=== PATIENT | male | born 1955 ===

== ENCOUNTER 2021-06-23 12:31 | Inpatient (IN) | payer BC, MEDICARE ==
[~2021-06-23] VITALS: Ht 170 cm; Wt 89.4 kg
[2021-06-23 13:12] LABS: BASOPHILS % (AUTO) 0 % (0-10); EOSINOPHILS % (AUTO) 0 % (0-10); HEMATOCRIT 30 % (40-54); HEMOGLOBIN 10.3 g/dL (13.3-17.7); LYMPHOCYTES # (AUTO) 2.3 10^3/uL (1.0-4.0); LYMPHOCYTES % (AUTO) 15 % (12-44); MEAN CORPUSCULAR HEMOGLOBIN 32 pg (25-34); MEAN CORPUSCULAR HGB CONC 34 g/dL (32-36); MEAN CORPUSCULAR VOLUME 94 fL (80-99); MEAN PLATELET VOLUME 10.2 fL (9.0-12.2); MONOCYTES # (AUTO) 0.6 10^3/uL (0.0-1.0); MONOCYTES % (AUTO) 4 % (0-12); NEUTROPHILS % (AUTO) 81 % (42-75); PLATELET COUNT 378 10^3/uL (130-400)
[2021-06-23] MEDS ORDERED: PANTOPRAZOLE 40 MG (PROTONIX) VIAL IV ONE (13:15)
[2021-06-23] MEDS ORDERED: ONDANSETRON 4 MG/2 ML (SDV) Z0FRAN IVP ONE (13:15)
[2021-06-23 13:18] LABS: INR 1.1 (0.8-1.4)
--- NOTE | 2021-06-23 13:28 | ED GI ---
General Chief Complaint: Abdominal/GI Problems Stated Complaint: ABD PAIN/VOMITING BLOOD Nursing Triage Note: ARRIVED VIA AMB WITH COMPLAINTS OF NEAR SYNCOPE LAST NIGHT, VOMITING BLOOD TODAY ALONG WITH BLACK STOOLS AND FEELING DIZZY. Source of Information: Patient Exam Limitations: No Limitations (RADHA VIEIRA STUDENT) History of Present Illness Date Seen by Provider: Jun 23, 2021 Time Seen by Provider: 13:15 Initial Comments This is a 65 YO male with history of HTN and pre-DM presents to the ED with hematemesis and black stools. Pt states he had the black stools as well as nausea and vomiting starting last night. Today, he noticed blood and black clots in the vomit, so he became concerned and came to the ER. Also had some dizziness with standing, but no other symptoms. Denies having had episodes like this before and has no history of GERD, gastritis, or ulcers. Never had an EGD, no abdominal surgeries. No NSAID use, but drinks 3 beers every night after work. Timing/Duration: 1 Day Associated Symptoms: No Back Pain, No Chest Pain, No Fever/Chills; Nausea/Vomiting; No Shortness of Air (RADHA VIEIRA STUDENT) Allergies and Home Medications Allergies Coded Allergies: No Known Drug Allergies (Unverified , 06/23/21) Patient Home Medication List Home Medication List Reviewed: Yes (KEN ESPINOZA MD) Atorvastatin Calcium (Atorvastatin Calcium) 20 Mg Tablet, 20 MG PO HS, (Reported) Entered as Reported by: ANNE BELL on 06/24/21947 Last Action: Reviewed Glipizide/Metformin HCl (Glipizide-Metformin 5-500 mg) 1 Each Tablet, 1 EA PO DAILY, (Reported) Entered as Reported by: ANNE BELL on 06/24/21947 Last Action: Reviewed Hydrochlorothiazide (Hydrochlorothiazide) 12.5 Mg Tablet, 12.5 MG PO DAILY, (Reported) Entered as Reported by: ANNE BELL on 06/24/21947 Last Action: Reviewed Metoprolol Succinate (Metoprolol Succinate) 100 Mg Tab.er.24h, 100 MG PO BID, (Reported) Entered as Reported by: ANNE BELL on 06/24/21947 Last Action: Reviewed Review of Systems Review of Systems Constitutional: No chills, No fever EENTM: No Blurred Vision, No Double Vision Respiratory: Denies Cough, Denies Orthopnea Cardiovascular: See HPI; Denies Chest Pain, Denies Edema Gastrointestinal: See HPI Musculoskeletal: No back pain, No neck pain Skin: no symptoms reported Psychiatric/Neurological: Denies Headache, Denies Numbness Endocrine: No Symptoms Reported Hematologic/Lymphatic: No Symptoms Reported (RADHA VIEIRA MED STUDENT) All Other Systems Reviewed Negative Unless Noted: Yes (Negative excepted noted.) (RADHA VIEIRA STUDENT) Past Wfhbfef-Czwlms-Wxqiix Hx Patient Social History Tobacco Use?: Yes Tobacco type used: Cigarettes Smoking Status: Current Everyday Smoker Substance use?: No Alcohol Use?: Yes Alcohol type: Beer Alcohol Frequency: Daily (RADHA VIEIRA STUDENT) Immunizations Up To Date Second COVID19 Vaccination Jorge: 01/27 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 oz. 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) Extremities: normal range of motion, normal inspection Back: no CVA tenderness, no vertebral tenderness Neurologic/Psychiatric: no motor/sensory deficits, alert, oriented x 3, other (anxious) Skin: normal color, warm/dry (RADHA VIEIRA MED STUDENT) Progress/Results/Core Measures Results/Orders Lab Results Laboratory Tests Test 06/23/21 12:55 Range/Units White Blood Count 16.0 H 4.3-11.0 10^3/uL Red Blood Count 3.23 L 4.30-5.52 10^6/uL Hemoglobin 10.3 L 13.3-17.7 g/dL Hematocrit 30 L 40-54 % Mean Corpuscular Volume 94 80-99 fL Mean Corpuscular Hemoglobin 32 25-34 pg Mean Corpuscular Hemoglobin Concent 34 32-36 g/dL Red Cell Distribution Width 13.4 10.0-14.5 % Platelet Count 378 130-400 10^3/uL Mean Platelet Volume 10.2 9.0-12.2 fL Immature Granulocyte % (Auto) 0 % Neutrophils (%) (Auto) 81 H 42-75 % Lymphocytes (%) (Auto) 15 12-44 % Monocytes (%) (Auto) 4 0-12 % Eosinophils (%) (Auto) 0 0-10 % Basophils (%) (Auto) 0 0-10 % Neutrophils # (Auto) 13.0 H 1.8-7.8 10^3/uL Lymphocytes # (Auto) 2.3 1.0-4.0 10^3/uL Monocytes # (Auto) 0.6 0.0-1.0 10^3/uL Eosinophils # (Auto) 0.0 0.0-0.3 10^3/uL Basophils # (Auto) 0.0 0.0-0.1 10^3/uL Immature Granulocyte # (Auto) 0.1 0.0-0.1 10^3/uL Neutrophils % (Manual) 79 % Lymphocytes % (Manual) 14 % Monocytes % (Manual) 6 % Eosinophils % (Manual) 0 % Basophils % (Manual) 0 % Band Neutrophils 1 % Blood Morphology Comment NORMAL Prothrombin Time 15.0 H 12.2-14.7 SEC INR Comment 1.1 0.8-1.4 Activated Partial Thromboplast Time 28 24-35 SEC Sodium Level 141 135-145 MMOL/L Potassium Level 4.1 3.6-5.0 MMOL/L Chloride Level 107 98-107 MMOL/L Carbon Dioxide Level 23 21-32 MMOL/L Anion Gap 11 5-14 MMOL/L Blood Urea Nitrogen 66 H 7-18 MG/DL Creatinine 1.15 0.60-1.30 MG/DL Estimat Glomerular Filtration Rate 64 BUN/Creatinine Ratio 57 Glucose Level 199 H 70-105 MG/DL Calcium Level 8.6 8.5-10.1 MG/DL Corrected Calcium 8.8 8.5-10.1 MG/DL Total Bilirubin 0.4 0.1-1.0 MG/DL Aspartate Amino Transf (AST/SGOT) 9 5-34 U/L Alanine Aminotransferase (ALT/SGPT) 14 0-55 U/L Alkaline Phosphatase 49 40-136 U/L Total Protein 5.9 L 6.4-8.2 GM/DL Albumin 3.7 3.2-4.5 GM/DL (KEN ESPINOZA MD) My Orders Orders - KEN ESPINOZA MD Ed Iv/Invasive Line Start (06/23/21 13:04) Cbc With Automated Diff (06/23/21 13:04) Comprehensive Metabolic Panel (06/23/21 13:04) Protime With Inr (06/23/21 13:04) Partial Thromboplastin Time (06/23/21 13:04) Ondansetron Injection (Zofran Injectio (06/23/21 13:15) Pantoprazole Injection (Protonix Injecti (06/23/21 13:15) Manual Differential (06/23/21 12:55) Orthostatic Vital Signs (Adult (06/23/21 13:36) Ed Admission (Communication) (06/23/21 14:49) (KEN ESPINOZA MD) Medications Given in ED (KEN ESPINOZA MD) Vital Signs/I&O 06/23/21 06/23/21 12:45 13:43 Temp 36.1 Pulse 84 75 76 82 Resp 16 B/P (MAP) 149/91 (110) 122/62 (82) 98/65 (76) 97/56 (70) Pulse Ox 96 O2 Delivery Room Air (KEN ESPINOZA MD) Blood Pressure Mean: 110 Progress Progress Note : Time: 14:08 Progress Note 65-year-old male with a history of hypertension and diabetes presents to the emergency room with black tarry stools for 24 hours and vomiting what sounds like coffee grounds this morning. Patient continues to have a little nausea and abdominal discomfort. No history of same in the past. He is not on anticoagulants. He complains of feeling a little dizzy with standing. Physical examination is notable for dark black stool in the rectal vault, Hemoccult positive. No masses palpated on rectal exam however it was difficult to get to the prostate. Abdominal exam is soft, nonfocal, positive bowel sounds no peritoneal signs. He is not significantly pale, not diaphoretic Neurologically normal Labs have been reviewed, the patient does have a leukocytosis of 16,000, mildly anemic with a hemoglobin of 10. Platelets are normal coags are normal. Case is discussed with Dr. Maddox who is on-call for general surgery and recommends P rotonix twice daily and clear liquids for now. I discussed the case with Dr. Taylor who accepts the patient for admission to cardiac stepdown. Findings and plan of care have been communicated to the patient. He is agreeable. All questions are sought and answered. (KEN ESPINOZA MD) Departure Communication (Admissions) Time/Spoke to Admitting Phy: 14:[address] Taylor; will put que'd orders in for admission Time/Spoke to Consulting Phy: 14:[address] Maddox; recc Protonix 40mg BID and clear liquids; he will see (KEN ESPINOZA MD) Impression Primary Impression: GI bleed Qualified Codes: K92.2 - Gastrointestinal hemorrhage, unspecified Disposition: ADMITTED INPATIENT Condition: Stable Admissions Decision to Admit Reason: Admit from ER (General) Decision to Admit/Date: Jun 23, 2021 Time/Decision to Admit Time: 14:07 (KEN SEPINOZA MD) Departure-Patient Inst. Referrals: NO,LOCAL PHYSICIAN (PCP/Family) Primary Care Physician Verification and Attestation of Medical Student E/M Service A medical student performed and documented this service in my presence. I reviewed and verified all information documented by the medical student and made modifications to such information, when appropriate. I personally performed the physical exam and medical decision making. Ken Espinoza, Jun 23, 2021,14:08 (KEN ESPINOZA MD) RADHA VIEIRA MED STUDENT Jun 23, 2021 13:27 KEN ESPINOZA MD Jun 23, 2021 14:08
[2021-06-23 13:30] LABS: ALBUMIN 3.7 GM/DL (3.2-4.5); BILIRUBIN,TOTAL 0.4 MG/DL (0.1-1.0); CALCIUM 8.6 MG/DL (8.5-10.1); CREATININE SERUM 1.15 MG/DL (0.60-1.30); POTASSIUM 4.1 MMOL/L (3.6-5.0); TOTAL PROTEIN 5.9 GM/DL (6.4-8.2)
[2021-06-23 13:33] LABS: BAND NEUTROPHILS 1 %; BASOPHILS % (MANUAL) 0 %; EOSINOPHILS % (MANUAL) 0 %; LYMPHOCYTES % (MANUAL) 14 %; MONOCYTES % (MANUAL) 6 %; NEUTROPHILS % (MANUAL) 79 %; RBC MORPH NORMAL
[2021-06-23 13:43] VITALS: BP_SYST 122; BP_SYST 97; BP_SYST 98; BP_DIAS 56; BP_DIAS 62; BP_DIAS 65
--- NOTE | 2021-06-23 15:07 | History & Physical-Hospitalist ---
NONA LUBIN MED STUDENT 06/23/21 1507: History of Present Illness HPI/Chief Complaint CC- GI Bleed Mr. Schafer is a 65 YO male with a history of HTN, Diabetes, and High cholesterol that presented to the ER today due to black stool and emesis. He states that yesterday he was coming home from work and felt like he was having an episode of high blood pressure, he started to have some nausea in his stomach. Then around 1 or 2 in the morning he went to the bathroom and noticed that his stool was black. He also vomited from his nausea and noted it to be black with blood clots in it as well. He states that he was also having some lightheadedness throughout the day yesterday when he would stand up to walk. The lightheadedness is better when he sits and gets worse with walking. He does complain of SOB, Black stools and emesis. He denies ABD pain, fevers, chills, ASHRAF, CP, dysuria, and leg/foot pain. He has never had bleeding like this before. He has a medical history of HTN, diabetes, and high cholesterol. He has never had surgery. States he has never had colonoscopy or EGD. States he is a 1/2 PPD smoker, Drinks about 3-4 beers a day after work. No elicit drugs. States his only family history is a mother with diabetes. He is not on a blood thinner. He is being admitted to [facility]. Surgery reccomends Protonix and clear liquids, will probably scope patient sometime tomorrow or the next day. Source: patient Exam Limitations: no limitations Date Seen 06/23/21 Time Seen by a Provider: 15:00 Attending Physician Tawana Tracey DO PCP No,Local Physician Referring Physician Date of Admission 06/23/2021 Home Medications & Allergies Home Medications Reviewed patient Home Medication Reconciliation performed by pharmacy medication reconciliations vocational rehabilitation technician and/or nursing. Patients Allergies have been reviewed. Allergies Allergies Coded Allergies No Known Drug Allergies (Rkofufispz73/15/21) Past Rhzjkyy-Vzyomw-Gjgfop Hx Patient Social History Tobacco Use?: Yes Tobacco type used: Cigarettes Smoking Status: Current Everyday Smoker Substance use?: No Alcohol Use?: Yes Alcohol type: Beer Alcohol Frequency: Daily Immunizations Up To Date Second COVID19 Vaccination Jorge: 01/27 Current Status Advance Directives: No Primary Language: Tuvaluan Preferred Spoken Language: Tuvaluan Review of Systems Constitutional: No chills, No diaphoresis; dizziness; No fever, No weakness EENTM: No blurred vision, No eye pain, No vision loss, No mouth pain, No epistaxis Respiratory: No cough; dyspnea on exertion; No hemoptysis, No phlegm; short of breath Cardiovascular: No chest pain, No edema, No Hx of Intervention, No palpitations, No syncope Gastrointestinal: No abdominal pain, No constipation, No diarrhea, No dysphagia; hematemesis ([place]), melena, nausea, vomiting Genitourinary: No discharge, No dysuria, No frequency, No hematuria, No hesita ncy, No incontinence Musculoskeletal: No joint pain Skin: No lesions, No rash Psychiatric/Neurological: Denies Headache Physical Exam Physical Exam Vital Signs Vital Signs - First Documented 06/23/21 12:45 Temp 36.1 Pulse 84 Resp 16 B/P (MAP) 149/91 (110) Pulse Ox 96 O2 Delivery Room Air Capillary Refill : Less Than 3 Seconds Height, Weight, BMI Height: '" Weight: lbs. oz. kg; 29.00 BMI Method: General Appearance: No Apparent Distress, WD/WN Eyes: Bilateral Eye Normal Inspection, Bilateral Eye PERRL, Bilateral Eye EOMI HEENT: PERRL/EOMI, Pharynx Normal, Moist Mucous Membranes Neck: Supple Respiratory: Chest Non Tender, Lungs Clear, Normal Breath Sounds, No Accessory Muscle Use, No Respiratory Distress Cardiovascular: Regular Rate, Rhythm, No Edema, No Murmur, Normal Peripheral Pulses Gastrointestinal: Normal Bowel Sounds, No Organomegaly, No Pulsatile Mass, Non Tender, Soft Rectal: Other (Per ED He had dark stool in the rectal vault, no notable masses but was difficult to palpate prostate. Hemeoccult +) Extremity: Normal Capillary Refill, Normal Inspection, Non Tender, No Calf Tenderness, No Pedal Edema Neurologic/Psychiatric: Alert, Oriented x3, Normal Mood/Affect Skin: Normal Color, Warm/Dry Results Results/Procedures Labs Laboratory Tests 06/23/21 12:55 Patient resulted labs reviewed. Assessment/Plan Admission Diagnosis GI Bleed Admission Status: Inpatient Order (span 2 midnights) Reason for Inpatient Admission: GI Bleed, Scope Assessment and Plan GI Bleed Anemia -HBG 10.3, continue to monitor -Daily Labs -Protonix, clear liquids -Will likely need scope Leukocytosis -16.0 today -Check daily HTN Hypercholesteremia -Normal Meds Diabetes -Monitor Blood sugar -Home meds Supervisory-Addendum Brief Verification & Attestation Participated in pt care: history, physical Personally performed: exam Care discussed with: Medical Student Procedures: n/a n/a TAWANA TRACEY 06/24/21 0543: History of Present Illness HPI/Chief Complaint CC: Dark stools HPI: This is a male who has no PMH who presented to the ER with dark stools and weakness, he was noted to be orthostatic with hypotension when he stood up. Pt had been passing dark stools and vomiting blood so due to the fact of his significant orthostasis, Hgb of 10.3, and suspected upper go bleed, he will be placed in the ICU, Hgb and Hematocrit will be checked every six hours, Protonix 40 Mg IV BID along with aggressive IV fluids and Dr. Maddox has been consulted. Source: patient Exam Limitations: no limitations Past Njkusod-Fwkjbc-Lvsflx Hx Patient Social History Marrital Status: single Employed/Student: employed Smoking Status: Current Everyday Smoker Alcohol Use?: Yes Alcohol Frequency: Daily Review of Systems Constitutional: see HPI Gastrointestinal: melena, nausea, vomiting Physical Exam Physical Exam General Appearance: No Apparent Distress, WD/WN, Chronically ill Eyes: Right Eye Normal Inspection, Right Eye PERRL HEENT: PERRL/EOMI, Normal ENT Inspection, Pharynx Normal, Moist Mucous Membranes Neck: Full Range of Motion, Normal Inspection, Non Tender Respiratory: Chest Non Tender, Lungs Clear, Normal Breath Sounds, No Accessory Muscle Use, No Respiratory Distress Cardiovascular: Regular Rate, Rhythm, No Edema, No Gallop, No JVD, No Murmur, Normal Peripheral Pulses Gastrointestinal: Normal Bowel Sounds, No Organomegaly, No Pulsatile Mass, Non Tender, Soft Back: Normal Inspection, No CVA Tenderness, No Vertebral Tenderness Extremity: Normal Capillary Refill, Normal Inspection, Normal Range of Motion, Non Tender, No Calf Tenderness, No Pedal Edema Neurologic/Psychiatric: Alert, Oriented x3, No Motor/Sensory Deficits, Normal Mood/Affect Skin: Normal Color, Warm/Dry Lymphatic: No Adenopathy Assessment/Plan Admission Diagnosis Assessment: GI bleed Orthostasis Anemia Alcohol user Smoker Plan: Stepdown Dr. MADDOX Admission Status: Observation Diagnosis/Problems Diagnosis/Problems (1) GI bleed Status: Acute Qualifiers: GI bleed type/associated pathology: unspecified gastrointestinal hemorrhage type Qualified Codes: K92.2 - Gastrointestinal hemorrhage, unspecified Supervisory-Addendum Brief Verification & Attestation Participated in pt care: history, MDM, physical Personally performed: exam, history, MDM, supervision of care Care discussed with: Medical Student Procedures: n/a Results interpretation: Verified all documentation Verification and Attestation of Medical Student E/M Service A medical student performed and documented this service in my presence. I reviewed and verified all information documented by the medical student and made modifications to such information, when appropriate. I personally performed the physical exam and medical decision making. Tawana Tracey, Jun 24, 2021,05:43 NONA LUBIN MED STUDENT Jun 23, 2021 15:07 TAWANA TRACEY DO Jun 24, 2021 05:43
--- NOTE | 2021-06-23 15:10 | CONSULTATION REPORT ---
DATE OF SERVICE: HISTORY OF PRESENT ILLNESS: The patient is a 65-year-old male who presented to the Emergency Department with dark tarry stools as well as coffee-ground emesis. He has a history of hypertension as well as diabetes and does smoke daily as well as drink approximately 3 beers daily. Besides having noticing the symptoms, he also reported that he did have one episode where he stood up quickly and he felt lightheaded. He does not have any known history of peptic ulcer disease nor gastroesophageal reflux disease. He does not report taking nonsteroidal anti-inflammatory on a chronic basis. His vital signs upon arrival are stable and his hemoglobin is stable at 10.3. PAST MEDICAL HISTORY: Hypertension, diabetes. PAST SURGICAL HISTORY: None known. ALLERGIES: No known drug allergies. MEDICATIONS: Antihypertensive daily. SOCIAL HISTORY: Positive smoke 45-pack years, three drinks daily. REVIEW OF SYSTEMS: Well-nourished male currently in no acute distress. He is not experiencing any shortness of breath or difficulty breathing. No chest pain, palpitations, diaphoresis. Did have episode of nausea as well as what appeared to be coffee ground material. He also has had several bowel movements, which had been dark tarry in consistency and color. No fever, chills, no recent inadvertent weight loss. All other review of systems negative. PHYSICAL EXAMINATION: CHEST: A few scattered wheezes bilaterally. HEART: Regular, no murmurs. EXTREMITIES: No lower extremity edema, negative Homans sign. HEENT: No scleral icterus. NECK: No cervical lymphadenopathy. ABDOMEN: Soft, nondistended. There is mild discomfort in the epigastric region upon deep palpation. No peritoneal signs. No hernias. SKIN: Warm, dry. LABORATORY DATA: WBC 16.0, hemoglobin 10.3, hematocrit 30, platelets 378. BUN 66, creatinine 1.15. Liver function enzymes are normal. ASSESSMENT AND PLAN: A 65-year-old male with likely upper gastrointestinal bleed secondary to smoking and alcohol use and unknown peptic ulcer disease. We will admit him continue with resuscitation and monitoring of his hemoglobin and hematocrit as well as placed him on IV PPI therapy on a b.i.d. basis. On this admission, we will also proceed with an EGD, which we will schedule. Job ID: [id number] DocumentID: [id number] Dictated Date: 06/23/2021 14:56:24 Assistant County Attorney Date: 06/23/2021 15:09:34 Dictated By: IAN ALFARO MD
[2021-06-23] MEDS ORDERED: diphenhydrAMINE 25 MG TAB (BENADRYL) PO PRN (17:15)
[2021-06-23] MEDS ORDERED: CALCIUM CARBONATE 500 MG (TUMS) TAB.CHEW PO PRN (17:15)
[2021-06-23] MEDS ORDERED: HYDROcodone/APAP 5 MG/325 MG (LORTAB) TAB PO PRN (17:15)
[2021-06-23] MEDS ORDERED: morphine INJ 10 MG/ML 1ML (SYR OR VIAL) IVP PRN (17:15)
[2021-06-23] MEDS ORDERED: MELATONIN 3 MG TABLET PO PRN (17:15)
[2021-06-23] MEDS ORDERED: DOCUSATE SODIUM 100 MG (COLACE) CAP PO PRN (17:15)
[2021-06-23] MEDS ORDERED: LOPERAMIDE 2 MG (IMODIUM) TABLET PO PRN (17:15)
[2021-06-23] MEDS ORDERED: ONDANSETRON 4 MG/2 ML (SDV) Z0FRAN IVP PRN (17:15)
[2021-06-23] MEDS ORDERED: ALPRAZolam 0.25 MG (XANAX) TAB PO PRN (17:15)
[2021-06-23] MEDS ORDERED: ACETAMINOPHEN 325 MG TABLET PO PRN (17:45)
[2021-06-23] MEDS: NS IV 1000 ML 1,000 ML IV SCH (18:30)
[2021-06-23 19:36] VITALS: BP 149/91
[2021-06-23] MEDS ORDERED: RT-ALBUTEROL SULF 2.5 MG/3 ML PRE-MIX VIAL INH PRN (19:45)
[2021-06-23] MEDS: SUCRALFATE 1 GM (CARAFATE) TAB PO SCH (20:17)
[2021-06-23] MEDS: PANTOPRAZOLE 40 MG (PROTONIX) VIAL IV SCH (20:17)
[2021-06-23] MEDS: polyethylene glycoL POWDER 17 GM (MIRALAX) PACK PO SCH (20:17)
[2021-06-23] MEDS: SENNA W/DOCUSATE (SENOKOT S) TABLET PO SCH (20:17)
[2021-06-23 20:24] LABS: HEMOGLOBIN 8.3 g/dL (13.3-17.7)
[2021-06-24] MEDS: NS IV 1000 ML 1,000 ML IV SCH (02:54)
[2021-06-24 04:30] LABS: BASOPHILS % (AUTO) 0 % (0-10); EOSINOPHILS # (AUTO) 0.3 10^3/uL (0.0-0.3); EOSINOPHILS % (AUTO) 3 % (0-10); HEMATOCRIT 23 % (40-54); HEMOGLOBIN 7.6 g/dL (13.3-17.7); LYMPHOCYTES # (AUTO) 2.5 10^3/uL (1.0-4.0); LYMPHOCYTES % (AUTO) 28 % (12-44); MEAN CORPUSCULAR HEMOGLOBIN 32 pg (25-34); MEAN CORPUSCULAR HGB CONC 34 g/dL (32-36); MEAN CORPUSCULAR VOLUME 93 fL (80-99); MEAN PLATELET VOLUME 10.6 fL (9.0-12.2); MONOCYTES # (AUTO) 0.5 10^3/uL (0.0-1.0); MONOCYTES % (AUTO) 6 % (0-12); NEUTROPHILS # (AUTO) 5.4 10^3/uL (1.8-7.8); NEUTROPHILS % (AUTO) 62 % (42-75); PLATELET COUNT 232 10^3/uL (130-400); WHITE BLOOD COUNT 8.7 10^3/uL (4.3-11.0)
[2021-06-24 04:51] LABS: ALBUMIN 2.9 GM/DL (3.2-4.5); POTASSIUM 3.6 MMOL/L (3.6-5.0)
[2021-06-24 04:52] LABS: CALCIUM 7.7 MG/DL (8.5-10.1)
[2021-06-24 04:53] LABS: TOTAL PROTEIN 4.8 GM/DL (6.4-8.2)
[2021-06-24 04:55] LABS: BILIRUBIN,TOTAL 0.3 MG/DL (0.1-1.0)
[2021-06-24 04:57] LABS: CREATININE SERUM 0.89 MG/DL (0.60-1.30)
[2021-06-24] MEDS: SUCRALFATE 1 GM (CARAFATE) TAB PO SCH ×4 (06:21→20:40)
[2021-06-24] MEDS: PANTOPRAZOLE 40 MG (PROTONIX) VIAL IV SCH ×2 (09:08→20:41)
[2021-06-24] MEDS: SENNA W/DOCUSATE (SENOKOT S) TABLET PO SCH ×2 (09:08→20:47)
[2021-06-24] MEDS: polyethylene glycoL POWDER 17 GM (MIRALAX) PACK PO SCH ×2 (09:13→20:47)
[2021-06-24] MEDS ORDERED: MTP100TCR PO (09:48)
[2021-06-24] MEDS ORDERED: ATOR20TA66 PO (09:48)
[2021-06-24] MEDS ORDERED: HYDR12.56 PO (09:48)
[2021-06-24] MEDS ORDERED: GLIP1TAB6 PO (09:48)
[2021-06-24] MEDS ORDERED: IRON SUCROSE 200 MG/10 ML (VENOFER) VIAL IV ONE (11:45)
--- NOTE | 2021-06-24 12:21 | Progress Note - Hospitalist ---
NONA LUBIN MED STUDENT 06/24/21 1221: Subjective HPI/CC On Admission Date Seen by Provider: Jun 24, 2021 Time Seen by Provider: 08:00 CC: Dark stools HPI: This is a male who has no PMH who presented to the ER with dark stools and weakness, he was noted to be orthostatic with hypotension when he stood up. Pt had been passing dark stools and vomiting blood so due to the fact of his significant orthostasis, Hgb of 10.3, and suspected upper go bleed, he will be placed in the ICU, Hgb and Hematocrit will be checked every six hours, Protonix 40 Mg IV BID along with aggressive IV fluids and Dr. Maddox has been consulted. Subjective/Events-last exam Pt is awake and sitting up in bed this morning. Pt states that he has a bit of a headache this morning but is doing well otherwise and does not have pain anywhere. Has had no nausea or feeling like he had so pass out today. He has been on a clear liquid diet. no BM yet. States he is able to walk okay by himself. He is on clear liquids and IV PPI. He has EGD scheduled for tomorrow. Review of Systems General: No Chills, No Fatigue, No Malaise HEENT: Head Aches; No Visual Changes, No Dysphasia, No Sore Throat Pulmonary: No Dyspnea, No Cough, No Pleuritic Chest Pain Cardiovascular: No: Chest Pain, Palpitations, Edema Gastrointestinal: No: Nausea, Vomiting, Abdominal Pain, Diarrhea, Constipation, Melena Genitourinary: No Dysuria, No Frequency, No Hematuria Musculoskeletal: No: leg pain, foot pain Neurological: No: Weakness, Numbness Objective Exam Vital Signs Vital Signs Date Time Temp Pulse Resp B/P (MAP) Pulse Ox O2 Delivery O2 Flow Rate FiO2 06/24/21 11:42 36.6 68 16 135/75 97 Room Air 06/24/21 07:45 1.00 Capillary Refill : Less Than 3 Seconds General Appearance: No Apparent Distress, WD/WN HEENT: PERRL/EOMI, Moist Mucous Membranes Neck: Supple Respiratory: Chest Non Tender, Lungs Clear, Normal Breath Sounds, No Accessory Muscle Use, No Respiratory Distress Cardiovascular: Regular Rate, Rhythm, No Edema, No Murmur, Normal Peripheral Pulses Gastrointestinal: Normal Bowel Sounds, No Organomegaly, No Pulsatile Mass, Non Tender, Soft Rectal: Deferred Extremity: Normal Capillary Refill, Non Tender, No Calf Tenderness, No Pedal Edema Neurologic/Psychiatric: Alert, Oriented x3, Normal Mood/Affect Skin: Normal Color, Warm/Dry Results/Procedures Lab Laboratory Tests 06/23/21 12:55 06/23/21 20:05 06/24/21 03:54 Patient resulted labs reviewed. Assessment/Plan Assessment and Plan Assess & Plan/Chief Complaint GI Bleed Anemia -HBG 7.6, continue to monitor -Consider transfusion of continues to drop below 7 -Check iron studies on todays lab, iron infusion -Daily Labs -Protonix, clear liquids -EGD scheduled for tomrrow Leukocytosis -8.7 today -No reason to suspect infection -Will monitor w/ daily cbc HTN Hypercholesteremia -Normal Meds Diabetes -Monitor Blood sugar -Home meds Pt will move down to 4th floor Clinical Quality Measures DVT/VTE Risk/Contraindication: Contraindications-Pharm: Pt at low risk Other: GIB Supervisory-Addendum Brief Verification & Attestation Participated in pt care: history, physical Personally performed: exam Care discussed with: Medical Student Procedures: n/a n/a JAMES TRACEY DO 06/25/21 0505: Subjective Subjective/Events-last exam Pt doing a lot better Black stools noted EGD will be tomorrow Hgb 7.6 Transferring to fourth floor Check iron level and give one iron infusion No other new issues Review of Systems General: Fatigue, Malaise Gastrointestinal: Melena Objective Exam General Appearance: No Apparent Distress, WD/WN, Chronically ill Respiratory: Lungs Clear, Normal Breath Sounds Cardiovascular: Regular Rate, Rhythm Neurologic/Psychiatric: Alert, Oriented x3, No Motor/Sensory Deficits, Normal Mood/Affect Assessment/Plan Assessment and Plan Assess & Plan/Chief Complaint Monitor hemoglobin EGD NONA LUBIN MED STUDENT Jun 24, 2021 12:21 JAMES TRACEY DO Jun 25, 2021 05:05
--- NOTE | 2021-06-24 16:06 | Progress Note ---
Subjective Date Seen by a Provider: Jun 24, 2021 Time Seen by a Provider: 15:00 Subjective/Events-last exam doing well. no nausea/vomiting. no BM since admission. Objective Exam Vital Signs Date Time Temp Pulse Resp B/P (MAP) Pulse Ox O2 Delivery O2 Flow Rate FiO2 06/24/21 11:42 36.6 68 16 135/75 97 Room Air 06/24/21 09:55 99 Room Air 06/24/21 08:30 Room Air 06/24/21 07:45 36.2 66 12 115/62 100 Nasal Cannula 1.00 06/24/21 07:00 64 06/24/21 03:38 36.5 65 16 106/60 100 Nasal Cannula 1.00 06/24/21 03:02 100 Nasal Cannula 1.00 06/24/21 00:49 61 06/24/21 00:00 99 High Flow N/C 3.00 06/23/21 23:15 36.5 67 16 111/52 100 Nasal Cannula 2.50 06/23/21 23:10 98 Nasal Cannula 3.00 06/23/21 21:20 99 High Flow N/C 3.00 06/23/21 20:14 36.3 68 128/68 100 Nasal Cannula 2.00 06/23/21 19:36 36.1 84 96 06/23/21 19:15 36.4 69 132/64 100 Nasal Cannula 2.00 06/23/21 19:00 66 06/23/21 18:00 104/60 77 Nasal Cannula 2.00 06/23/21 17:35 95 High Flow N/C 3.00 I & O 06/24/21 07:00 Intake Total 820 ml Output Total 1175 ml Balance -355 ml Capillary Refill : Less Than 3 Seconds General Appearance: No Apparent Distress HEENT: PERRL/EOMI Neck: Full Range of Motion Respiratory: Chest Non Tender, Decreased Breath Sounds Cardiovascular: Regular Rate, Rhythm Gastrointestinal: normal bowel sounds, non tender, soft Extremity: Normal Capillary Refill Neurologic/Psychiatric: Alert, Oriented x3 Skin: Normal Color Lymphatic: No Adenopathy Results Lab Laboratory Tests 06/23/21 20:05: Hemoglobin 8.3L, Hematocrit 25L 06/24/21 03:54: Hemoglobin 7.6L, Hematocrit 23L, White Blood Count 8.7, Red Blood Count 2.41L, Mean Corpuscular Volume 93, Mean Corpuscular Hemoglobin 32, Mean Corpuscular Hemoglobin Concent 34, Red Cell Distribution Width 13.5, Platelet Count 232, Mean Platelet Volume 10.6, Immature Granulocyte % (Auto) 0, Neutrophils (%) (Auto) 62, Lymphocytes (%) (Auto) 28, Monocytes (%) (Auto) 6, Eosinophils (%) (Auto) 3, Basophils (%) (Auto) 0, Neutrophils # (Auto) 5.4, Lymphocytes # (Auto) 2.5, Monocytes # (Auto) 0.5, Eosinophils # (Auto) 0.3, Basophils # (Auto) 0.0, Immature Granulocyte # (Auto) 0.0, Sodium Level 140, Potassium Level 3.6, Chloride Level 109H, Carbon Dioxide Level 23, Anion Gap 8, Blood Urea Nitrogen 42H, Creatinine 0.89, Estimat Glomerular Filtration Rate 86, BUN/Creatinine Ratio 47, Glucose Level 116H, Calcium Level 7.7L, Corrected Calcium 8.6, Total Bilirubin 0.3, Aspartate Amino Transf (AST/SGOT) 9, Alanine Aminotransferase (ALT/SGPT) 12, Alkaline Phosphatase 41, Total Protein 4.8L, Albumin 2.9L 06/24/21 11:58: Glucometer 156H Assessment/Plan Assessment/Plan Assess & Plan/Chief Complaint upper GI bleed. improving with bid PPI. EGD tomorrow. Clinical Quality Measures DVT/VTE Risk/Contraindication: Contraindications-Pharm: Pt at low risk Other: IAN CARUSO MD Jun 24, 2021 16:06
--- NOTE | 2021-06-24 16:07 | Progress Note-Pre Operative ---
Pre-Operative Progress Note H&P Reviewed The H&P was reviewed, patient examined and no changes noted. Date Seen by Provider: Jun 24, 2021 Time Seen by Provider: 15:00 Date H&P Reviewed: Jun 24, 2021 Time H&P Reviewed: 15:00 Pre-Operative Diagnosis: upper GI bleed IAN ALFARO MD Jun 24, 2021 16:07
[2021-06-25 05:54] LABS: BASOPHILS % (AUTO) 0 % (0-10); EOSINOPHILS # (AUTO) 0.3 10^3/uL (0.0-0.3); EOSINOPHILS % (AUTO) 6 % (0-10); HEMATOCRIT 22 % (40-54); HEMOGLOBIN 7.3 g/dL (13.3-17.7); LYMPHOCYTES # (AUTO) 1.3 10^3/uL (1.0-4.0); LYMPHOCYTES % (AUTO) 23 % (12-44); MEAN CORPUSCULAR HEMOGLOBIN 32 pg (25-34); MEAN CORPUSCULAR HGB CONC 34 g/dL (32-36); MEAN CORPUSCULAR VOLUME 94 fL (80-99); MEAN PLATELET VOLUME 10.5 fL (9.0-12.2); MONOCYTES # (AUTO) 0.4 10^3/uL (0.0-1.0); MONOCYTES % (AUTO) 7 % (0-12); NEUTROPHILS # (AUTO) 3.6 10^3/uL (1.8-7.8); NEUTROPHILS % (AUTO) 64 % (42-75); PLATELET COUNT 218 10^3/uL (130-400); WHITE BLOOD COUNT 5.6 10^3/uL (4.3-11.0)
[2021-06-25 06:15] LABS: ALBUMIN 3.1 GM/DL (3.2-4.5); POTASSIUM 3.5 MMOL/L (3.6-5.0)
[2021-06-25 06:16] LABS: CALCIUM 7.8 MG/DL (8.5-10.1)
[2021-06-25 06:17] LABS: TOTAL PROTEIN 5.2 GM/DL (6.4-8.2)
[2021-06-25 06:19] LABS: BILIRUBIN,TOTAL 0.2 MG/DL (0.1-1.0)
[2021-06-25] MEDS: SUCRALFATE 1 GM (CARAFATE) TAB PO SCH ×4 (06:19→21:48)
[2021-06-25 06:21] LABS: CREATININE SERUM 0.73 MG/DL (0.60-1.30)
[2021-06-25] MEDS: polyethylene glycoL POWDER 17 GM (MIRALAX) PACK PO SCH ×2 (08:42→21:46)
[2021-06-25] MEDS: PANTOPRAZOLE 40 MG (PROTONIX) VIAL IV SCH ×2 (08:42→21:48)
[2021-06-25] MEDS: SENNA W/DOCUSATE (SENOKOT S) TABLET PO SCH ×2 (08:42→21:46)
[2021-06-25] MEDS ORDERED: LACTATED RINGERS 1,000 ML IV SCH (09:30)
[2021-06-25] MEDS ORDERED: CYANOCOBALAMIN INJ 1000 MCG/ML IM NR (11:30)
[2021-06-25] MEDS ORDERED: IRON SUCROSE 200 MG/10 ML (VENOFER) VIAL IV NR (11:45)
[2021-06-25] MEDS ORDERED: LACTATED RINGERS 1,000 ML IV ONE (12:48)
[2021-06-25] MEDS ORDERED: LIDOCAINE JELLY 2% 6 ML SYRINGE ONE (13:27)
[2021-06-25] MEDS ORDERED: proPOfol 200 MG/20 ML (DIPRIVAN) VIAL IV ONE (13:44)
[2021-06-25 13:50] VITALS: BP 123/57
[2021-06-25] MEDS ORDERED: LACTATED RINGERS 1,000 ML IV STA (13:55)
[2021-06-25] MEDS ORDERED: HURRICAINE EXT TUBE (BENZOCAINE) XX PRN (14:00)
[2021-06-25] MEDS ORDERED: LIDOCAINE JELLY 2% 6 ML SYRINGE MM PRN (14:00)
--- NOTE | 2021-06-25 14:10 | Progress Note-Post Operative ---
Post-Operative Progess Note Surgeon (s)/Issuer (s) Surgeon IAN ALFARO MD Issuer: none Pre-Operative Diagnosis upper GI bleed Post-Operative Diagnosis reflux esophagitis(grade 3), moderate HH(3cm), mild-mod gastritis, no active bleed. Procedure & Operative Findings Date of Procedure 06/25/21 Procedure Performed/Findings EGD with bx. Anesthesia Type mac Estimated Blood Loss Estimated blood loss (mL): minimal Specimens/Packing Specimens Removed ge jxn, antrum IAN ALFARO MD Jun 25, 2021 14:10
[2021-06-25] MEDS ORDERED: SUCR1TAB36 PO (14:12)
[2021-06-25] MEDS ORDERED: PANT40TA2 PO (14:12)
--- NOTE | 2021-06-25 14:13 | Discharge Inst-Surgical ---
D/C Lap Instructions-KIDO New, Converted, or Re-Newed RX: RX on Chart Follow Up PRN Activity as tolerated High Fiber Diet 25g or more per day Avoid Alcohol, Caffeine, Spicy [place] and Acid foods. Drink 64 fluid oz or more of fluids per day. Symptoms to Report: Fever over 101 degree F, Nausea/Vomiting If any problems/questions: Contact your physician or go to Emergency Room IAN ALFARO MD Jun 25, 2021 14:13
--- NOTE | 2021-06-25 14:35 | Progress Note ---
BENTLEY VILLAVICENCIO 06/25/21 1435: Progress Note Patient came to [facility] ER on 06/23 with complaints of black stool/emesis and orthostatic hypotension. Patient was admitted to [facility] for suspected GI bleed. Hemoglobin on admission was 10.3. Patient has a history of alcohol use, cigarette smoke, and HTN. Patient was consulted by Dr. Maddox, General Surgery, and as placed on Protonix 40mg BID and aggressive IV fluid resuscitation. On 06/24 patient was feeling better, but their hemoglobin had dropped to 7.6. Patient was given an iron infusion to help supplement this. On 06/25 patient had an esophagogastroduodenoscopy with Dr. Maddox. Patient was also given another iron transfusion. Patient was cleared for discharge by Dr. Maddox. Patient is to avoid alcohol, smoking, NSAIDs and spicy food. Follow up with Dr. Maddox, per his instructions, for esophagogastroduodenoscopy results. TAWANA TRACEY DO 06/26/21 0629: Supervisory-Addendum Brief Verification & Attestation Participated in pt care: history, MDM, physical Personally performed: exam, history, MDM, supervision of care Care discussed with: Medical Student Procedures: n/a Results interpretation: Verified all documentation Verification and Attestation of Medical Student E/M Service A medical student performed and documented this service in my presence. I reviewed and verified all information documented by the medical student and made modifications to such information, when appropriate. I personally performed the physical exam and medical decision making. Tawana Tracey Jun 26, 2021,06:29 BENTLEY VILLAVICENCIO Jun 25, 2021 14:35 TAWANA TRACEY DO Jun 26, 2021 06:29
--- NOTE | 2021-06-25 18:32 | OPERATIVE REPORT ---
DATE OF SERVICE: 06/23/2021 ADMITTING PHYSICIAN: Dr. Taylor. PREOPERATIVE DIAGNOSIS: Upper gastrointestinal bleed. POSTOPERATIVE DIAGNOSES: Reflux esophagitis, [place] grade III, moderate size hiatal hernia approximately 3 cm in size, mild to moderate gastritis, normal duodenum, no active bleeding. PROCEDURE: EGD with biopsy. SURGEON: Ian Alfaro MD ANESTHESIA: Monitored anesthesia care. ESTIMATED BLOOD LOSS: Minimal. FINDINGS: Reflux esophagitis, [place] grade III, moderate size hiatal hernia approximately 3 cm in size, mild to moderate gastritis, normal duodenum, no active bleeding. DISPOSITION: The patient tolerated the procedure well. INDICATIONS: The patient is a 65-year-old male who was admitted for coffee-ground emesis as well as dark tarry stools. He does not report any classic symptoms of peptic ulcer disease nor gastroesophageal reflux disease; however, does have risk factors including a 50-pack smoking year history as well as taking in 3-4 beers on a daily basis. He was also found to be anemic. DESCRIPTION OF PROCEDURE: The patient was brought to the endoscopy suite, laid in the left lateral decubitus position. After adequate IV pain and sedative medications and monitored anesthesia care, the mouthpiece was applied. The endoscope was placed in the mouth, visualized the pharynx and hypopharyngeal region. Vocal cords, epiglottis and vallecula identified and appeared to be normal. The endoscope was then gently intubated into the esophageal opening and esophagus insufflated. The endoscope was then advanced through the first, second and third portion of esophagus at the level of the GE junction, a reflux esophagitis, [place] grade III identified. There was no active bleeding identified. Biopsies were taken with forceps with visualization of good hemostasis. The endoscope was then advanced in the stomach and endoscope retroflexed visualizing a moderate size hiatal hernia approximately 3 cm in size. There was a mild to moderate gastritis. No formal ulcerations, polyps, or any neoplasms. A biopsy was taken of the antrum to rule out H. pylori with visualization of good hemostasis. The endoscope was then advanced to the pylorus and the first and second portion of the duodenum, which appeared normal with no ulcerations or any active bleeding sources. The endoscope was then slowly withdrawn while taking a second look and suctioning of residual air with no additional findings. The patient tolerated the procedure well. We will have him continue with medical management with PPI acid tax services professional as well as continuation of Carafate 1 gram q.i.d. for the next 2 weeks. He also needs to proceed with the necessary lifestyle and dietary accommodation including smoking, alcohol cessation as well as avoidance of caffeinated beverages, spicy, greasy and acidic foods. Job ID: [id number] DocumentID: [id number] Dictated Date: 06/25/2021 14:02:38 Radio Frequency Technician Date: 06/25/2021 18:32:24 Dictated By: IAN ALFARO MD
--- NOTE | 2021-06-25 21:01 | Progress Note - Hospitalist ---
Subjective HPI/CC On Admission Date Seen by Provider: Jun 25, 2021 Time Seen by Provider: 10:00 CC: Dark stools HPI: This is a male who has no PMH who presented to the ER with dark stools and weakness, he was noted to be orthostatic with hypotension when he stood up. Pt had been passing dark stools and vomiting blood so due to the fact of his significant orthostasis, Hgb of 10.3, and suspected upper go bleed, he will be placed in the ICU, Hgb and Hematocrit will be checked every six hours, Protonix 40 Mg IV BID along with aggressive IV fluids and Dr. Maddox has been consulted. Subjective/Events-last exam Patient doing well We will Hep-Lock IV fluid EGD today Hopefully discharge Review of Systems General: Fatigue, Malaise Objective Exam Vital Signs Vital Signs Date Time Temp Pulse Resp B/P (MAP) Pulse Ox O2 Delivery O2 Flow Rate FiO2 06/25/21 23:49 36.6 75 18 115/52 97 Room Air 06/24/21 07:45 1.00 Capillary Refill : Less Than 3 Seconds General Appearance: No Apparent Distress, WD/WN, Chronically ill Respiratory: Lungs Clear, Normal Breath Sounds Cardiovascular: Regular Rate, Rhythm Neurologic/Psychiatric: Alert, Oriented x3 Results/Procedures Lab Laboratory Tests 06/26/21 05:43 Patient resulted labs reviewed. Assessment/Plan Assessment and Plan Assess & Plan/Chief Complaint EGD Diagnosis/Problems Diagnosis/Problems (1) GI bleed Status: Acute Qualifiers: GI bleed type/associated pathology: unspecified gastrointestinal hemorrhage type Qualified Codes: K92.2 - Gastrointestinal hemorrhage, unspecified Clinical Quality Measures DVT/VTE Risk/Contraindication: Contraindications-Pharm: Pt at low risk Other: JAMES MORA DO Jun 25, 2021 21:01
[2021-06-26] MEDS: SUCRALFATE 1 GM (CARAFATE) TAB PO SCH (05:48)
[2021-06-26 06:00] LABS: BASOPHILS % (AUTO) 0 % (0-10); EOSINOPHILS # (AUTO) 0.4 10^3/uL (0.0-0.3); EOSINOPHILS % (AUTO) 5 % (0-10); HEMATOCRIT 23 % (40-54); HEMOGLOBIN 7.7 g/dL (13.3-17.7); LYMPHOCYTES # (AUTO) 1.6 10^3/uL (1.0-4.0); LYMPHOCYTES % (AUTO) 22 % (12-44); MEAN CORPUSCULAR HEMOGLOBIN 32 pg (25-34); MEAN CORPUSCULAR HGB CONC 34 g/dL (32-36); MEAN CORPUSCULAR VOLUME 93 fL (80-99); MEAN PLATELET VOLUME 10.6 fL (9.0-12.2); MONOCYTES # (AUTO) 0.5 10^3/uL (0.0-1.0); MONOCYTES % (AUTO) 6 % (0-12); NEUTROPHILS % (AUTO) 66 % (42-75); PLATELET COUNT 243 10^3/uL (130-400); WHITE BLOOD COUNT 7.6 10^3/uL (4.3-11.0)
[2021-06-26 06:44] LABS: ALBUMIN 3.3 GM/DL (3.2-4.5); POTASSIUM 3.6 MMOL/L (3.6-5.0)
[2021-06-26 06:45] LABS: CALCIUM 8.4 MG/DL (8.5-10.1)
[2021-06-26 06:47] LABS: TOTAL PROTEIN 5.6 GM/DL (6.4-8.2)
[2021-06-26 06:48] LABS: BILIRUBIN,TOTAL 0.3 MG/DL (0.1-1.0)
[2021-06-26 06:50] LABS: CREATININE SERUM 0.71 MG/DL (0.60-1.30)
[2021-06-26] MEDS: polyethylene glycoL POWDER 17 GM (MIRALAX) PACK PO SCH (08:07)
[2021-06-26] MEDS: SENNA W/DOCUSATE (SENOKOT S) TABLET PO SCH (08:07)
[2021-06-26] MEDS: PANTOPRAZOLE 40 MG (PROTONIX) VIAL IV SCH (08:07)
--- NOTE | 2021-06-26 10:00 | Discharge Summary ---
Diagnosis/Chief Complaint Date of Admission Jun 23, 2021 at 14:50 Date of Discharge Jun 26, 2021 at 1100 Discharge Date: Jun 26, 2021 Discharge Time: 11:00 Admission Diagnosis Assessment: GI bleed Orthostasis Anemia Alcohol user Smoker Plan: Stepdown Dr. ALFARO Primary Care No,Local Physician Discharge Diagnosis GI bleed secondary to reflux esophagitis Hiatal hernia Type 2 diabetes History of hypertension Tobaccoism Anemia secondary to #1 (1) GI bleed Status: Acute Discharge Summary Procedures/Consulations Upper endoscopy Discharge Physical Exam Allergies: Coded Allergies: No Known Drug Allergies (Unverified , 06/23/21) Vitals & I&Os Vital Signs Date Time Temp Pulse Resp B/P (MAP) Pulse Ox O2 Delivery O2 Flow Rate FiO2 06/26/21 08:14 20 149/78 98 Room Air 06/25/21 23:49 36.6 75 06/24/21 07:45 1.00 General Appearance: No Apparent Distress, WD/WN HEENT: Normal ENT Inspection Respiratory: Lungs Clear, Normal Breath Sounds, No Accessory Muscle Use, No Respiratory Distress Cardiovascular: Regular Rate, Rhythm, No Edema, No Murmur Gastrointestinal: Normal Bowel Sounds, Non Tender, Soft Extremity: No Calf Tenderness, No Pedal Edema Skin: Normal Color, Warm/Dry Neurologic/Psychiatric: Alert, Oriented x3, No Motor/Sensory Deficits, Normal Mood/Affect Hospital Course Was the Problem List Reviewed?: Yes This is a 65-year-old male who was admitted with near syncope and dizziness and vomiting blood. The patient was admitted hemoglobin dropped to 7.3 and stabilized. No transfusion was necessary. Dr. ALFARO saw the patient in consultation and performed an upper endoscopy and that revealed reflux esophagitis and a hiatal hernia but no evidence of active bleeding. It was felt that this was the source of his bleeding with instructions to get a colonoscopy as an outpatient. At the time of discharge the patient was eating a normal diet understood his discharge instructions Labs (last 24 hrs) Laboratory Tests 06/25/21 12:35: Influenza Type A (RT-PCR) Not Detected, Influenza Type B (RT-PCR) Not Detected, SARS-CoV-2 RNA (RT-PCR) Not Detected 06/26/21 05:43: White Blood Count 7.6, Red Blood Count 2.44L, Hemoglobin 7.7L, Hematocrit 23L, Mean Corpuscular Volume 93, Mean Corpuscular Hemoglobin 32, Mean Corpuscular Hemoglobin Concent 34, Red Cell Distribution Width 13.4, Platelet Count 243, Mean Platelet Volume 10.6, Immature Granulocyte % (Auto) 0, Neutrophils (%) (Auto) 66, Lymphocytes (%) (Auto) 22, Monocytes (%) (Auto) 6, Eosinophils (%) (Auto) 5, Basophils (%) (Auto) 0, Neutrophils # (Auto) 5.0, Lymphocytes # (Auto) 1.6, Monocytes # (Auto) 0.5, Eosinophils # (Auto) 0.4H, Basophils # (Auto) 0.0, Immature Granulocyte # (Auto) 0.0, Sodium Level 139, Potassium Level 3.6, Chloride Level 107, Carbon Dioxide Level 25, Anion Gap 7, Blood Urea Nitrogen 6L , Creatinine 0.71, Estimat Glomerular Filtration Rate 111, BUN/Creatinine Ratio 8, Glucose Level 143H, Calcium Level 8.4L, Corrected Calcium 9.0, Total Bilirubin 0.3, Aspartate Amino Transf (AST/SGOT) 21, Alanine Aminotransferase (ALT/SGPT) 29, Alkaline Phosphatase 60, Total Protein 5.6L, Albumin 3.3 Patient resulted labs reviewed. Pending Labs Laboratory Tests 06/26/21 05:43: White Blood Count 7.6, Red Blood Count 2.44, Hemoglobin 7.7, Hematocrit 23, Mean Corpuscular Volume 93, Mean Corpuscular Hemoglobin 32, Mean Corpuscular Hemoglobin Concent 34, Red Cell Distribution Width 13.4, Platelet Count 243, Mean Platelet Volume 10.6, Immature Granulocyte % (Auto) 0, Neutrophils (%) (Auto) 66, Lymphocytes (%) (Auto) 22, Monocytes (%) (Auto) 6, Eosinophils (%) (Auto) 5, Basophils (%) (Auto) 0, Neutrophils # (Auto) 5.0, Lymphocytes # (Auto) 1.6, Monocytes # (Auto) 0.5, Eosinophils # (Auto) 0.4, Basophils # (Auto) 0.0, Immature Granulocyte # (Auto) 0.0, Sodium Level 139, Potassium Level 3.6, Chloride Level 107, Carbon Dioxide Level 25, Anion Gap 7, Blood Urea Nitrogen 6, Creatinine 0.71, Estimat Glomerular Filtration Rate 111, BUN/Creatinine Ratio 8, Glucose Level 143, Calcium Level 8.4, Corrected Calcium 9.0, Total Bilirubin 0.3, Aspartate Amino Transf (AST/SGOT) 21, Alanine Aminotransferase (ALT/SGPT) 29, Alkaline Phosphatase 60, Total Protein 5.6, Albumin 3.3 Discussion & Recommendations Discharge Planning: >30 minutes discharge planning Discharge Home Medications: Active Scripts Active Carafate (Sucralfate) 1 Gm Tablet 1 Gm PO QID Protonix (Pantoprazole Sodium) 40 Mg Tablet.dr 40 Mg PO DAILY Reported Atorvastatin Calcium 20 Mg Tablet 20 Mg PO HS LAST FILLED 02-07-2021 #30/30 DAY SUPPLY Hydrochlorothiazide 12.5 Mg Tablet 12.5 Mg PO DAILY Glipizide-Metformin 5-500 mg (Glipizide/Metformin HCl) 1 Each Tablet 1 Ea PO DAILY Metoprolol Succinate 100 Mg Tab.er.24h 100 Mg PO BID Condition at discharge Stable Instructions to patient/family Please see electronic discharge instructions given to patient. Clinical Quality Measures DVT/VTE Risk/Contraindication: Contraindications-Pharm: Pt at low risk Other: GIB Copy Copies To 1: [facility] Problem Qualifiers (1) GI bleed: GI bleed type/associated pathology: unspecified gastrointestinal hemorrhage type Qualified Codes: K92.2 - Gastrointestinal hemorrhage, unspecified SANDEEP LION MD Jun 26, 2021 10:00
== END 2021-06-26 12:50 | disposition home or self-care (01) | DRG 368 ==
LOC: ER 12:35 → CSD 14:50 → UNDOADMOB 14:50 → CSD 14:50 → UNDODISOB 06-26 12:50
PROVIDERS: ADMIT Internal Medicine; ATTEND Internal Medicine
PROC: 0DB68ZX Excision of Stomach, Via Natural or Artificial Opening Endoscopic, Diagnostic (ICD-10-PCS; 2021-06-25)
PROC: 0DB48ZX Excision of Esophagogastric Junction, Via Natural or Artificial Opening Endoscopic, Diagnostic (ICD-10-PCS; principal; 2021-06-25 13:44)
DX: K21.01 Gastro-esophageal reflux disease with esophagitis, with bleeding (principal); K29.71 Gastritis, unspecified, with bleeding; K27.4 Chronic or unspecified peptic ulcer, site unspecified, with hemorrhage; K44.9 Diaphragmatic hernia without obstruction or gangrene; I95.9 Hypotension, unspecified; D64.9 Anemia, unspecified; F17.210 Nicotine dependence, cigarettes, uncomplicated; Z72.89 Other problems related to lifestyle; E11.9 Type 2 diabetes mellitus without complications; I10 Essential (primary) hypertension; D72.829 Elevated white blood cell count, unspecified; E78.00 Pure hypercholesterolemia, unspecified; Z20.822 Contact with and (suspected) exposure to COVID-19
CPT/HCPCS: 36415; 80053; 82947; 83036; 83540; 85007; 85014; 85018; 85025; 85027; 85610; 85730; 86850; 86900; 86901; 87636; 94760